=== PATIENT | male | born 1990 | race Caucasian/White ===

== ENCOUNTER 2017-07-26 15:53 | Emergency (ER) | payer SELFPAY ==
[2017-07-26 15:57] VITALS: BMI 27.4
--- NOTE | 2017-07-26 16:41 | DR.MBACK ---
HPI - PCP Primary Care Physician: NFD - Complaint Chief Complaint:: PT. C/O RIGHT LOWER BACK PAIN THAT RADIATES DOWN TO RIGHT KNEE. PT. UNABLE TO BEAR WEIGHT. PT. ALSO UNABLE TO SIT ON RIGHT SIDE OF BUTTOCKS. DENIES INJURY. - Reviewed Nurses Notes Review: Yes - Source History Provided: Patient - Mode of Arrival Mode of Arrival: Wheelchair - Timing Onset of Chief Complaint: 07/23/17 PMH - PMH Past Medical History: No Past Surgical History: No Surgical History: No History - Family History History of Family Medical Conditions: No - Social History Does patient currently use any type of tobacco product: Yes Have you used tobacco products in the last 12 months: Yes Type of Tobacco Use: Cigarettes Does any household member use tobacco: No Alcohol Use: None Do you use any recreational Drugs:: No Lives With: Family Lives Where: Home - infectious screening In the last 2 months have you had wt loss of >10#?: NO Have you had fever, night sweats or hemotysis?: No Have you traveled outside the country in the last 6 months?: No Isolation: Standard PE - Vital Signs Vitals: Temperature 98.6 F Pulse Rate 115 Respiratory Rate 20 Blood Pressure 135/72 O2 Sat by Pulse Oximetry 97 ROR - Labs Reviewed Result Diagrams: 07/26/17 16:52 07/26/17 16:52 Laboratory: WBC 10.3 X10^3/uL (3.6-10.0) H 07/26/17 16:52 RBC 4.71 X10^6/uL (4.7-6.0) 07/26/17 16:52 Hgb 12.6 g/dL (13.5-18.0) L 07/26/17 16:52 Hct 37.3 % (42.0-54.0) L 07/26/17 16:52 MCV 79.2 fL (80.0-100.0) L 07/26/17 16:52 MCH 26.7 pg (27.0-34.0) L 07/26/17 16:52 MCHC 33.7 g/dL (33.0-35.0) 07/26/17 16:52 RDW 14.7 % (11.6-16.5) 07/26/17 16:52 Plt Count 349 X10^3/uL (150.0-450.0) 07/26/17 16:52 MPV 7.4 fL (7.4-11.0) 07/26/17 16:52 Neut % 81.4 % (42.0-75.0) H 07/26/17 16:52 Lymph % 10.0 % (21.0-51.0) L 07/26/17 16:52 [place] % 8.0 % (0.0-13.0) 07/26/17 16:52 Eos % 0.2 % (0.9-2.9) L 07/26/17 16:52 Baso % 0.4 % (0.2-1.0) 07/26/17 16:52 Neut # 8.4 x10^3/uL (2.2-4.8) H 07/26/17 16:52 Lymph # 1.0 X10^3/uL (1.3-2.9) L 07/26/17 16:52 [place] # 0.8 x10^3/uL (0.3-0.8) 07/26/17 16:52 Eos # 0.0 x10^3/uL (0.0-0.2) 07/26/17 16:52 Baso # 0.0 X10^3/uL (0.0-0.1) 07/26/17 16:52 Absolute Nucleated RBC 0.0 /100WBC 07/26/17 16:52 Sodium 139 mmol/L (136-145) 07/26/17 16:52 Corrected Sodium TNP 07/26/17 16:52 Potassium 3.7 mmol/L (3.5-5.1) 07/26/17 16:52 Chloride 101 mmol/L (98-107) 07/26/17 16:52 Carbon Dioxide 28.4 mmol/L (21-32) 07/26/17 16:52 BUN 7 mg/dL (7-18) 07/26/17 16:52 Creatinine 1.04 mg/dL (0.70-1.30) 07/26/17 16:52 Est GFR (MDRD) Af Amer > 60 (>60) 07/26/17 16:52 Est GFR (MDRD) Non-Af > 60 (>60) 07/26/17 16:52 Glucose 91 mg/dL (65-99) 07/26/17 16:52 Calcium 9.1 mg/dL (8.5-10.1) 07/26/17 16:52 Corrected Calcium TNP 07/26/17 16:52 Total Bilirubin 0.20 mg/dL (0.2-1.0) 07/26/17 16:52 AST 23 Units/L (15-37) 07/26/17 16:52 ALT 49 Units/L (12-78) 07/26/17 16:52 Alkaline Phosphatase 73 Units/L (46-116) 07/26/17 16:52 Total Protein 7.9 g/dL (6.4-8.2) 07/26/17 16:52 Albumin 3.5 g/dL (3.4-5.0) 07/26/17 16:52 Globulin 4.4 g/dL (2.5-4.5) 07/26/17 16:52 Albumin/Globulin Ratio 0.8 Ratio (1.1-2.1) L 07/26/17 16:52 Specimen Type Clean catch urine 07/26/17 17:33 Urine Color Yellow (YELLOW) 07/26/17 17:33 Urine Appearance Hazy (CLEAR) 07/26/17 17:33 Urine pH 7.0 (5.0 - 8.0) 07/26/17 17:33 Ur Specific [place] 1.010 (1.000-1.030) 07/26/17 17:33 Urine Protein Negative (NEGATIVE) 07/26/17 17:33 Urine Glucose (UA) Negative (NEGATIVE) 07/26/17 17:33 Urine Ketones Negative (NEGATIVE) 07/26/17 17:33 Urine Occult Blood Negative (NEGATIVE) 07/26/17 17:33 Urine Nitrite Negative (NEGATIVE) 07/26/17 17:33 Urine Bilirubin Negative (NEGATIVE) 07/26/17 17:33 Urine Urobilinogen 2+ (NORMAL) 07/26/17 17:33 Ur Leukocyte Esterase 1+ (NEGATIVE) 07/26/17 17:33 Urine RBC 0-2 /HPF (NEGATIVE) 07/26/17 17:33 Urine WBC 0-5 /HPF (NEGATIVE) 07/26/17 17:33 Ur Squamous Epith Cells Negative /HPF (NEGATIVE) 07/26/17 17:33 Urine Bacteria Trace /HPF (NEGATIVE) 07/26/17 17:33 Ur Culture Indicated? No/not indicated 07/26/17 17:33 - Discharge Plan Condition: Stable Prescriptions: Cyclobenzaprine HCl [FLEXERIL 10 MG *] 10 mg PO TID #20 tab Ibuprofen [MOTRIN TAB 800 MG *] 800 mg PO Q8H PRN #20 tab PRN Reason: Pain/Inflammation - Follow ups/Referrals Follow ups/Referrals: [facility] [STAFF PHYSICIAN] - 2 days NFD,None [Primary Care Provider] - 2 days - Instructions Instructions: Back Pain, Adult, [id number], Musculoskeletal Pain Additional Instructions: RETURN TO ED IF WORSE.
[2017-07-26] MEDS ORDERED: TORADOL 60 MG VIAL IM ONE (16:48)
[2017-07-26] MEDS ORDERED: TORADOL 60 MG VIAL ONE (16:59)
[2017-07-26] MEDS ORDERED: NORFLEX INJ ONE (16:59)
[2017-07-26 17:03] LABS: BASOPHILS % (AUTO) 0.4 % (0.2-1.0); EOSINOPHILS % (AUTO) 0.2 % (0.9-2.9); HEMATOCRIT 37.3 % (42.0-54.0); HEMOGLOBIN 12.6 g/dL (13.5-18.0); MEAN CORPUSCULAR HEMOGLOBIN 26.7 pg (27.0-34.0); MEAN CORPUSCULAR HGB CONC 33.7 g/dL (33.0-35.0); MEAN CORPUSCULAR VOLUME 79.2 fL (80.0-100.0); MEAN PLATELET VOLUME 7.4 fL (7.4-11.0); MONOCYTES # (AUTO) 0.8 x10^3/uL (0.3-0.8); NEUTROPHILS # (AUTO) 8.4 x10^3/uL (2.2-4.8); NEUTROPHILS % (AUTO) 81.4 % (42.0-75.0); PLATELET COUNT 349 X10^3/uL (150.0-450.0); RED BLOOD COUNT 4.71 X10^6/uL (4.7-6.0); RED CELL DISTRIBUTION WIDTH 14.7 % (11.6-16.5); WHITE BLOOD COUNT 10.3 X10^3/uL (3.6-10.0)
[2017-07-26 17:13] LABS: ALANINE AMINOTRANSFERASE 49 Units/L (12-78); ALBUMIN 3.5 g/dL (3.4-5.0); ALKALINE PHOSPHATASE 73 Units/L (46-116); ASPARTATE AMINO TRANSFERASE 23 Units/L (15-37); BLOOD UREA NITROGEN 7 mg/dL (7-18); CALCIUM 9.1 mg/dL (8.5-10.1); CARBON DIOXIDE 28.4 mmol/L (21-32); CHLORIDE 101 mmol/L (98-107); CREATININE 1.04 mg/dL (0.70-1.30); SODIUM 139 mmol/L (136-145); TOTAL PROTEIN 7.9 g/dL (6.4-8.2); eGFR BLACK RACES > 60 (>60); eGFR NON BLACK RACES > 60 (>60)
[2017-07-26] MEDS ORDERED: NORFLEX INJ IM ONE (17:16)
--- NOTE | 2017-07-26 17:27 | CT ---
CT abdomen and pelvis without contrast Indication: Right flank pain Technique: Helical CT images of the abdomen and pelvis were obtained without IV contrast. Reformatted images in the coronal and sagittal planes were also generated for review. Comparison: None Findings: Lung bases are clear. No aggressive osseous lesions are identified. Within the limits of a noncontrast exam, the liver, collapsed gallbladder, spleen, pancreas and adren als are unremarkable. Both kidneys and visualized ureters are normal without radiopaque stones or hyd roureteronephrosis. Calcifications within the lower pelvis are most compatible with phleboliths. The urinary bladder and prostate are unremarkable. Moderate stool is present throughout the colon, suggestive for constipation. The appendix is normal. There is no bowel inflammation or obstruction. The IVC and abdominal aorta are normal. There is no fr ee air, free fluid or lymphadenopathy. Impression: No acute abnormality to explain patient's symptoms. Specifically, no CT evidence of urolithiasis or o bstructive uropathy. Reported By:
[2017-07-26 17:38] LABS: BILIRUBIN,URINE NEGATIVE (NEGATIVE); BLOOD/HEMOGLOBIN,URINE NEGATIVE (NEGATIVE); GLUCOSE, URINE NEGATIVE (NEGATIVE); KETONES,URINE NEGATIVE (NEGATIVE); LEUKOCYTE ESTERASE ,URINE 1+ (NEGATIVE); NITRITES,URINE NEGATIVE (NEGATIVE); PROTEIN,URINE NEGATIVE (NEGATIVE); UROBILINOGEN,URINE 2+ (NORMAL)
[2017-07-26 17:48] LABS: APPEARANCE,URINE HAZY (CLEAR); BACTERIA,URINE TRACE /HPF (NEGATIVE); COLOR,URINE YELLOW (YELLOW); RBC,URINE 0-2 /HPF (NEGATIVE); SQUAMOUS EPITHELIAL CELL,UR NEGATIVE /HPF (NEGATIVE)
[2017-07-26] MEDS ORDERED: FLEXERIL TAB 10 MG ONE (19:07)
[2017-07-26 19:27] VITALS: BP 126/74
--- NOTE | 2017-07-26 19:27 | RAD ---
Right hip, two views Indication: Right hip pain Comparison: None Findings: No acute fracture or malalignment is identified. Bilateral hip joint spaces are preserved w ithout appreciable arthropathy. There is no radiographic evidence of osteonecrosis. SI joints and pub ic symphysis are normal. Surrounding soft tissues are unremarkable. Impression: Negative exam. Reported By:
== END 2017-07-26 19:28 | disposition home or self-care (01) ==
LOC: ER 16:02
DX: M79.1 Myalgia (principal); M54.5 Low back pain
CPT/HCPCS: 36415; 73501; 74176; 80053; 81001; 85025; 96372; 99282; 99283; J1885; J2360